=== PATIENT | male | born 1995 ===

== ENCOUNTER 2020-02-13 05:34 | Day surgery (SDC) | payer OTHER ==
[2020-02-13] MEDS ORDERED: KETO10TA2 PO (11:54)
[2020-02-13] MEDS ORDERED: PERCOCET 5-3251 EACH PO (11:55)
[2020-02-13] MEDS ORDERED: NEURONTIN300 MG PO (11:58)
== END 2020-02-13 14:10 | disposition home or self-care (01) ==
LOC: CIR.AMB 05:34
PROVIDERS: ATTEND Surgery
DX: K60.1 Chronic anal fissure (principal); Z20.828 Contact with and (suspected) exposure to other viral communicable diseases